=== PATIENT | female | born 1980 | race Caucasian/White ===

== ENCOUNTER 2016-10-19 12:49 | Emergency (ER) | payer BC ==
[2016-10-19 13:09] VITALS: BP 114/73; PULSE 107; TEMP 98
[2016-10-19] MEDS ORDERED: Lactated Ringer's 1,000 ML IV SCH (13:15)
--- NOTE | 2016-10-19 13:21 | ED PDOC ---
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 She felt slightly lightheaded, sat down and ate. Pt states she did not feel much better. Shortly after she was taking her student outside and after going down 3 flights of stairs she felt extremely lightheaded and dizzy. Pt states she thought she was going to pass out. Pt states her legs felt very weak. No similar in the past. PT and states she was anemia in previous pregnancies. Pt had to receive IV iron. Past Medical History Reviewed: Historical Data, Nursing Documentation, Vital Signs Vital Signs: Last Vital Signs Temp 98.0 F 10/19/16 13:06 Pulse 107 H 10/19/16 13:06 Resp 20 10/19/16 13:06 BP 114/73 10/19/16 13:06 Pulse Ox 99 10/19/16 13:06 - Medical History PMH: No Chronic Diseases - Surgical History Surgical History: No Surg Hx - Family History Family History: States: Unknown Family Hx - Living Arrangements Living Arrangements: With Family - Social History Current smoker - smoking cessation education provided: No - Allergies Allergies/Adverse Reactions: Allergies Allergy/AdvReac Type Severity Reaction Status Date / Time shellfish derived Allergy ITCHING Verified 10/19/16 13:05 Review of Systems ROS Statement: Except As Marked, All Systems Reviewed And Found Negative Neurological: Positive for: Weakness, Dizziness Physical Exam - Reviewed Nursing Documentation Reviewed: Yes Vital Signs Reviewed: Yes - Physical Exam Appears: Positive for: Well, Non-toxic, No Acute Distress Head Exam: Positive for: ATRAUMATIC, NORMAL INSPECTION, NORMOCEPHALIC Skin: Positive for: Normal Color, Warm, DRY Eye Exam: Positive for: EOMI, Normal appearance, PERRL ENT: Positive for: Normal ENT Inspection Neck: Positive for: Normal, Painless ROM Cardiovascular/Chest: Positive for: Regular Rate, Rhythm Respiratory: Positive for: Normal Breath Sounds Gastrointestinal/Abdominal: Negative for: Normal Exam (Consistant with 28 weeks gestation ) Back: Positive for: Normal Inspection Extremity: Positive for: Normal ROM Neurologic/Psych: Positive for: Alert, Oriented - Laboratory Results Result Diagrams: 10/19/16 14:10 10/19/16 14:10 - ECG O2 Sat by Pulse Oximetry: 99 Medical Decision Making Medical Decision Making: Pt had labs drawn last week and was told hemoglobin was 8.6. Pt was scheduled for appointment today. Results discussed with Dr. Laguna, patients OB. Disposition - Clinical Impression Clinical Impression: Anemia affecting fourth - Disposition Disposition: Routine/Home Disposition Time: 16:33 Condition: GOOD Instructions: Anemia (ED)
[2016-10-19 14:25] LABS: HEMATOCRIT 25.8 % (34.0-47.0); MEAN CELL VOLUME 94.4 fl (81.0-99.0); MEAN CORPUSCULAR HEMOGLOBIN 30.9 pg (27.0-31.0); MEAN CORPUSCULAR HGB CONC 32.8 g/dL (33.0-37.0); RED CELL DISTRIBUTION WIDTH 14.5 % (11.5-14.5); WHITE BLOOD COUNT 6.1 K/uL (4.8-10.8)
[2016-10-19 14:41] LABS: ALB/GLOB RATIO 1.2 (1.0-2.1); ALKALINE PHOSPHATASE 44 U/L (38-126); ALT/SGPT 20 U/L (9-52); AST/SGOT 26 U/L (14-36); BILIRUBIN,TOTAL 0.4 mg/dl (0.2-1.3); BLOOD UREA NITROGEN 6 mg/dl (7-17); CALCIUM 8.6 mg/dL (8.4-10.2); CARBON DIOXIDE 25 mmol/L (22-30); CHLORIDE 105 mmol/L (98-107); GFR AFRICAN-AMERICAN > 60; GLUCOSE,RANDOM 105 mg/dL (65-105); POTASSIUM 3.6 MMOL/L (3.6-5.0); SODIUM 138 mmol/l (132-148); TOTAL PROTEIN 6.3 G/DL (6.3-8.2)
[2016-10-19 17:12] VITALS: RESP 16; O2SAT 98
--- NOTE | 2016-10-19 17:25 | OBDCSUM ---
Datetime: 10/19/2016 17:15 Discharged to, Provider: Home Follow up at, Provider: Neymar Haas Disch Instr Activity: Normal activity Disch Instr Diet: Regular Discharge Time: 10/19/2016 17:15 Follow up in weeks, Provider: next week Disch Referrals: None Discharge Diagnosis Prov Other: /near syncopal episode/anemia
--- NOTE | 2016-10-19 17:25 | OBHP ---
Datetime: 10/19/2016 17:14 IP Adm Impression: , intrauterine IP Admit Plan: Discharge home Admit Comment, IP Provider: IUP at 28 had near synocopal episode and seen/cleaered by ER...came for monitoring of baby. 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 She felt slightly lightheaded, sat down and ate. Pt states she did not feel much better. Shortly after she was taking her student outside and after going down 3 flights of stairs she felt extremely lightheaded and dizzy. Pt states she thought she was going to pass out. Pt states her legs felt very weak. No similar in the past. PT and st ates she was anemia in previous pregnancies. Pt had to receive IV iron. PSH: C/S PMH: anemia on Fe/referreed for Fe infusion therapy (has not [facility]) POBGYNHX: C/S x 2; no STD Allergy Shellfish PSOH: denies smoking ETOH drugs care: Dr Usama Blackmon (contacted doctor/has results of CBC from the ER) A: IUP at 28w near syncopal episode/anemia PLAN: celared by ER will dishcarge home; labor isntructions; advised to follow up Dr Forrester next week. If any ore symp toms, go back to ER Extremities - PN: Normal Abdomen - PN: Normal Lungs - PN: Normal Heart - PN: Normal Neurologic - PN: Normal HEENT - PN: Normal General - PN: Normal FHR - Baseline A Provider: 130 Comments, ACOG Physical Exam: ROS: currenlty General no weakness; no fatigue HEENT: No [place]; no visual dist Resp: No SOB; no Cough CV: NO CP; no palpitations GI: No N/V/D : No F/U/D MS: NO joint pain Pool Provider: Negative IP Hx Assessment: undocunmented EGA AdmitDate IP: 28.4 Vital Signs Provider: Reviewed; Within Normal Limits IP Chief Complaint: Other NICHD Variability Prov Fetus A: Moderate 6-25bpm NICHD Accel Fetus A IP Provider: [id number] FHR Category Provider Fetus A: Category I NICHD Decel Fetus A IP Provider: None
--- NOTE | 2016-10-19 21:56 | CARD ---
APPROVED REPORT EKG Measurement Heart [id number] <Conclusion> Normal sinus rhythm Possible Left atrial enlargement Nonspecific T wave abnormality Prolonged QT Abnormal ECG
== END 2016-10-19 17:15 | disposition home or self-care (01) ==
LOC: H.ER 12:49 → H.EROB 17:05 → H.ER 17:15
DX: O26.93 Pregnancy related conditions, unspecified, third trimester (principal); R55 Syncope and collapse; Z3A.28 28 weeks gestation of pregnancy
CPT/HCPCS: 80053; 84484; 85027; 86850; 86870; 86900; 93005; 99283; J7120